=== PATIENT | male | born 1980 | race Two or more races ===

== ENCOUNTER 2018-03-20 11:29 | Emergency (ER) | payer OTHER, MEDICAID ==
[~2018-03-20] VITALS: Ht 172.7 cm; Wt 95.3 kg
[2018-03-20] MEDS ORDERED: LORAZEPAM 1MG TABLET PO ONE (12:00)
[2018-03-20 13:14] VITALS: BP 123/64
== END 2018-03-20 13:14 | disposition home or self-care (01) ==
LOC: ER 11:29
DX: F41.1 Generalized anxiety disorder (principal); I10 Essential (primary) hypertension; F17.210 Nicotine dependence, cigarettes, uncomplicated; F32.9 Major depressive disorder, single episode, unspecified; F20.9 Schizophrenia, unspecified; E66.9 Obesity, unspecified; J45.909 Unspecified asthma, uncomplicated; Z68.31 Body mass index [BMI] 31.0-31.9, adult; Z71.6 Tobacco abuse counseling
CPT/HCPCS: 99284; 99406